=== PATIENT | male | born 1985 | race Asian ===

== ENCOUNTER 2022-05-23 15:59 | Outpatient (CLI) | payer OTHER ==
--- NOTE | 2022-05-24 14:13 | XRAY Report ---
PROCEDURE: Foot 3 View RT INDICATIONS: PAIN IN RIGHT FOOT TECHNIQUE: 3 views of the foot were acquired. COMPARISON: None FINDINGS: Bones: No fractures or dislocations. No suspicious bony lesions. Soft tissues: No tibiotalar joint effusion. IMPRESSION: No acute osseous abnormality. If symptoms persist, follow-up radiographs and/or CT or MRI may be help ful for further evaluation. Reviewed by: Herve Jenkins MD on 05/24/2022 2:12 PM PST Approved by: Herve Jenkins MD on 05/24/2022 2:12 PM PST Station ID: [id number]
== END 2022-05-23 16:00 | disposition home or self-care (01) ==
LOC: DI 15:59
PROVIDERS: ATTEND Registered Nurse
DX: S97.81XA Crushing injury of right foot, initial encounter (principal); S97.121A Crushing injury of right lesser toe(s), initial encounter

== ENCOUNTER 2022-11-17 14:06 | Outpatient (CLI) | payer OTHER ==
--- NOTE | 2022-11-17 20:00 | MRI Report ---
PROCEDURE: ANKLE WO - RT INDICATIONS: RT ANKLE PAIN TECHNIQUE: Noncontrast sagittal T1 spin echo and T2 fast spin echo with fat saturation, axial proton density fas t spin echo and T2 fast spin echo with fat saturation, coronal T1 spin echo and T2 fast spin echo wit h fat saturation through the ankle/hindfoot. COMPARISON: Right foot radiograph dated 05/23/2022. FINDINGS: Image quality: Excellent. Bones and joints: No bone marrow contusions or fractures. No hindfoot coalitions. No osteochondral injuries of the talar dome. Small amount of tibiotalar joint effusion is seen, no gross loose bodies Medial structures: The posterior tibialis, flexor digitorum longus, and flexor hallucis longus tendo ns are intact. Small amount of fluid distending flexer tendon sheath is seen. The posterior tibial ne urovascular bundle appears normal within the tarsal tunnel, without extrinsic mass effect. The delto id ligament and is mildly thickened. The spring ligament is intact. Lateral structures: The anterior talofibular, calcaneofibular, and posterior talofibular ligaments a ppear intact. More superiorly, the anterior and posterior tibiofibular ligaments appear normal, as i s the intermalleolar ligament. The tibiofibular syndesmosis is normal in width at 2 mm or less. The peroneus longus and brevis tendons are mildly thickened with small amount of fluid distending tendon sheath at the level of mid to distal calcaneus.. Adjacent bony peroneal tubercle and retrotrochlear prominence are normal in size. The sinus tarsi demonstrates normal fatty signal, without edema, fib rosis, or cyst formation. Visualized sinus tarsi components (cervical ligament, interosseous talocal caneal ligament, roots of the inferior extensor retinaculum) appear normal. Anterior structures: The tibialis anterior, extensor hallucis longus, and extensor digitorum longus tendons appear intact. Posterior and plantar structures: Achilles tendon is intact. Medial and lateral bands of the planta r fascia are of normal thickness. No abductor digiti quinti muscle atrophy to suggest Gamez neuropa thy. IMPRESSION: 1. Low-grade tenosynovitis involving flexor tendons most notably in posterior tibial tendon at the le derrick of mid to distal talus. 2. Low-grade tenosynovitis involving peroneus tendons as above. 3. Low-grade deltoid ligament sprain. Lateral ankle ligaments are grossly intact. 4. No marrow edema. No fracture or dislocation. No osteochondral injuries of talar dome. Small joint effusion, no gross loose bodies. Reviewed by: James Villasenor MD on 11/17/2022 7:59 PM PDT Approved by: James Villasenor MD on 11/17/2022 7:59 PM PDT Station ID: [id number]
== END 2022-11-17 14:07 | disposition home or self-care (01) ==
LOC: DI 14:06
DX: S93.421A Sprain of deltoid ligament of right ankle, initial encounter (principal); M25.471 Effusion, right ankle; M65.9 Synovitis and tenosynovitis, unspecified